=== PATIENT | male | born 1960 | race African-American/Black ===

== ENCOUNTER 2016-08-16 11:41 | Inpatient (IN) | payer OTHER ==
[~2016-08-16] VITALS: Ht 177.8 cm; Wt 88.6 kg
[2016-08-16] MEDS ORDERED: NITROGLYCERIN OINT 1GM/INCH UDPKT TD STA (12:52)
[2016-08-16] MEDS ORDERED: ASPIRIN 81MG TABLET PO STA (12:52)
[2016-08-16] MEDS ORDERED: MORPHINE SULFATE 2 MG/ML CPJ (NOT FOR IM USE) IV ONE (13:00)
[2016-08-16 13:18] LABS: BASOPHILS % 1.4 % (0.0-2.0); HEMATOCRIT. 40.5 % (42.0-52.0); HEMOGLOBIN. 13.6 g/dL (14.0-18.0); LYMPHOCYTES % 36.2 % (20.0-50.0); MEAN CORPUSCULAR HEMOGLOBIN 28.7 pg (28.0-32.0); MEAN CORPUSCULAR HGB CONC 33.5 g/dL (31.0-37.0); MEAN CORPUSCULAR VOLUME 85.6 fL (80.0-94.0); MONOCYTES % 5.4 % (2.0-8.0); PLATELET 198 x1000/uL (130-400); RED BLOOD CELL COUNT 4.73 mill/uL (4.7-6.1); RED CELL DISTRIBUTION WIDTH 12.6 % (11.6-14.6); WHITE BLOOD COUNT 5.1 x1000/uL (4.5-11.0)
[2016-08-16 13:24] LABS: CHLORIDE 108 mEq/L (98-107)
[2016-08-16 13:29] LABS: D-DIMER 0.21 mg/L FEU (<0.50); PARTIAL THROMBOPLASTIN TIME 26.6 sec (24.0-34.0); PROTHROMBIN TIME 10.3 sec
[2016-08-16 13:35] LABS: ALANINE AMINOTRANSFERASE 18 IU/L (13-61); ALBUMIN 3.6 g/dL (3.4-5.0); ANION GAP 12; CALCIUM 8.1 mg/dL (8.5-10.1); CARBON DIOXIDE 24 mEq/L (21-32); INDEX HEMOLYSI 1 (1-3); INDEX ICTERIC 1 (1-4); INDEX LIPEMIC 1 (1-3); LIPASE 110 IU/L (73-393); TROPONIN I < 0.02 ng/mL (0.00-0.04); UREA NITROGEN BLOOD 11 mg/dL (7-21); eGFR > 60 mL/min (>60)
[2016-08-16] MEDS ORDERED: CLONIDINE 0.1MG TABLET PO PRN (16:15)
[2016-08-16] MEDS ORDERED: DIPHENHYDRAMINE 50MG/ML VIAL IV PRN (16:15)
[2016-08-16] MEDS ORDERED: IPRATROPIUM/ALBUTEROL 0.5-3(2.5)MG/3ML NEB INH PRN (16:15)
[2016-08-16] MEDS ORDERED: ONDANSETRON HCL 4MG/2ML VIAL IV PRN (16:15)
[2016-08-16] MEDS ORDERED: ACETAMINOPHEN 325MG TABLET PO PRN (16:15)
[2016-08-16] MEDS ORDERED: HYDROCODONE/ACETAMINOPHEN 5/325MG TABLET PO PRN (16:15)
[2016-08-16] MEDS ORDERED: DIAZEPAM 5 MG/ML 2ML CPJ IM ONE (18:45)
[2016-08-16 21:35] VITALS: BP 131/93
[2016-08-16 21:45] VITALS: BP 131/93
[2016-08-16] MEDS ORDERED: METH500T PO (22:52)
[2016-08-16] MEDS ORDERED: GABA-290 PO (22:52)
[2016-08-16] MEDS ORDERED: CARI350T27 PO (22:52)
[2016-08-16] MEDS ORDERED: NIFE60TA64 PO (22:52)
[2016-08-16] MEDS ORDERED: OXYC-159 PO (22:52)
[2016-08-16] MEDS ORDERED: OXYCODONE HCL/ACETAMINOPHEN 5/325MG TABLET PO PRN (23:15)
[2016-08-16] MEDS: GABAPENTIN 400MG CAPSULE PO SCH (23:22)
[2016-08-16] MEDS: CARISOPRODOL 350 MG TABLET PO SCH (23:22)
[2016-08-17] VITALS: BP 126/81
[2016-08-17 04:05] VITALS: BP 140/90
[2016-08-17 05:21] LABS: CLARITY URINE CLEAR (CLEAR); COLOR URINE YELLOW (YELLOW); GLUCOSE URINE NEGATIVE (NEGATIVE); KETONES URINE NEGATIVE (NEGATIVE); LEUKOCYTE ESTERASE URINE NEGATIVE (NEGATIVE); NITRITE URINE NEGATIVE (NEGATIVE); OCCULT BLOOD URINE NEGATIVE (NEGATIVE); PH URINE 6.5 (4.5-8.0); PROTEIN URINE NEGATIVE (NEGATIVE); SPECIFIC GRAVITY URINE 1.024 (1.005-1.030)
[2016-08-17 05:36] LABS: *AMPHETAMINES SCREEN URINE NEGATIVE (NEGATIVE); *BARBITURATES SCREEN URINE NEGATIVE (NEGATIVE); *BENZODIAZEPINES SCREEN URINE PRESUMTIVE POSITIVE (NEGATIVE); *COCAINE SCREEN URINE NEGATIVE (NEGATIVE); CANNABINOID URINE SCREEN PRESUMTIVE POSITIVE (NEGATIVE); ECSTASY MDMA SCREEN URINE NEGATIVE (NEGATIVE); METHADONE URINE SCREEN NEGATIVE (NEGATIVE); OPIATES URINE SCREEN PRESUMTIVE POSITIVE (NEGATIVE); PHENCYCLIDINE URINE SCREEN NEGATIVE (NEGATIVE)
[2016-08-17 06:01] LABS: CHLORIDE 108 mEq/L (98-107); HDL CHOLESTEROL 53 mg/dL (40-59); INDEX HEMOLYSI 1 (1-3); INDEX ICTERIC 1 (1-4); INDEX LIPEMIC 1 (1-3); LDL CHOLESTEROL 98 mg/dL (5-100)
[2016-08-17 06:13] LABS: ALANINE AMINOTRANSFERASE 20 IU/L (13-61); ALBUMIN 3.2 g/dL (3.4-5.0); ANION GAP 14; CALCIUM 8.3 mg/dL (8.5-10.1); CARBON DIOXIDE 22 mEq/L (21-32); TRIGLYCERIDE 308 mg/dL (0-150); TROPONIN I < 0.02 ng/mL (0.00-0.04); UREA NITROGEN BLOOD 15 mg/dL (7-21); eGFR > 60 mL/min (>60)
[2016-08-17 06:16] LABS: BASOPHILS % 0.5 % (0.0-2.0); EOSINOPHILS % 2.3 % (0.0-5.0); HEMATOCRIT. 41.2 % (42.0-52.0); HEMOGLOBIN. 13.4 g/dL (14.0-18.0); MEAN CORPUSCULAR HEMOGLOBIN 28.5 pg (28.0-32.0); MEAN CORPUSCULAR HGB CONC 32.6 g/dL (31.0-37.0); MEAN CORPUSCULAR VOLUME 87.3 fL (80.0-94.0); MEAN PLATELET VOLUME 9.8 fl (7.4-10.4); MONOCYTES % 5.9 % (2.0-8.0); NEUTROPHILS % 51.3 % (40.0-76.0); PLATELET 208 x1000/uL (130-400); RED BLOOD CELL COUNT 4.72 mill/uL (4.7-6.1); RED CELL DISTRIBUTION WIDTH 12.7 % (11.6-14.6)
[2016-08-17 08:00] VITALS: BP 141/84
[2016-08-17] MEDS: GABAPENTIN 400MG CAPSULE PO SCH ×3 (08:29→17:00)
[2016-08-17] MEDS: CARISOPRODOL 350 MG TABLET PO SCH ×3 (08:30→17:00)
[2016-08-17] MEDS: METHOCARBAMOL 500MG TABLET PO SCH ×3 (08:30→17:00)
[2016-08-17] MEDS ORDERED: GABAPENTIN 400MG CAPSULE PO SCH (09:00)
[2016-08-17] MEDS ORDERED: NIFEDIPINE XL 90MG TAB PO SCH (09:00)
[2016-08-17] MEDS ORDERED: CARISOPRODOL 350 MG TABLET PO SCH (09:00)
[2016-08-17] MEDS ORDERED: LOSARTAN POTASSIUM 50 MG TABLET PO SCH (10:00)
[2016-08-17] MEDS ORDERED: REGADENOSON 0.4 MG/5 ML IV ONE ×2 (10:00→11:32)
[2016-08-17] MEDS ORDERED: ASPIRIN 81MG EC TABLET PO SCH (10:00)
[2016-08-17 12:15] VITALS: BP 134/87
[2016-08-17 16:00] VITALS: BP 119/77
[2016-08-17 16:13] VITALS: BP 119/77
[2016-08-17] MEDS ORDERED: ATORVASTATIN CALCIUM 20MG TABLET PO SCH (21:00)
== END 2016-08-17 18:45 | disposition home or self-care (01) | DRG 203 ==
LOC: ER 14:10 → 7WST 16:14
PROVIDERS: ADMIT Internal Medicine; ATTEND Internal Medicine
DX: R07.89 Other chest pain (principal); G82.20 Paraplegia, unspecified; I10 Essential (primary) hypertension; D64.9 Anemia, unspecified; F12.90 Cannabis use, unspecified, uncomplicated
CPT/HCPCS: 36415; 71010; 78452; 80053; 80061; 80305; 81003; 83690; 84484; 85025; 85379; 85610; 85730; 87040; 87086; 93005; 93017; 93306; 96374; 99285; A9500; J2270; J2785

== ENCOUNTER 2019-08-04 23:15 | Emergency (ER) | payer MEDICAID, OTHER ==
[~2019-08-04] VITALS: Ht 180.3 cm; Wt 76.0 kg
[~2019-08-04 23:15] MED LIST: CARI350T27 PO; GABA-290 PO; METH500T PO; NIFE60TA64 PO; OXYC-159 PO
[2019-08-05] MEDS ORDERED: HYDROCODONE/ACETAMINOPHEN 5/325MG TABLET PO ONE (00:15)
[2019-08-05 04:30] VITALS: BP 154/91
== END 2019-08-05 04:30 | disposition home or self-care (01) ==
LOC: ER 23:52
DX: S39.012A Strain of muscle, fascia and tendon of lower back, initial encounter (principal); V49.49XA Driver injured in collision with other motor vehicles in traffic accident, initial encounter; Y93.89 Activity, other specified; Y92.89 Other specified places as the place of occurrence of the external cause; Y99.8 Other external cause status; F12.10 Cannabis abuse, uncomplicated; Z79.899 Other long term (current) drug therapy
CPT/HCPCS: 71045; 72100; 99284